=== PATIENT | female | born 1940 | race Caucasian/White ===

== ENCOUNTER 2023-09-17 13:35 | Outpatient (OUT) | payer OTHER, SELFPAY ==
--- NOTE | 2023-09-17 13:41 | MM_ITS ---
Patient Name: JAGUAR MONAE MR#: [id number] : 1940 Exam Date: 09/17/2023 Ordering Doctor: DR Ruy Mullins . RADIOLOGY REPORT PROCEDURE: MM TOMOSYNTHESIS SCREENING BI COMPARISON: MG MAMM SCREEN 3D SHANTELL CAD, 08/03/2022. MG MAMM SCREEN 3D SHANTELL CAD, 08/01/2021. MG MAMM SCREEN SHANTELL W CAD, 03/04/2020. MG MAMM SHANTELL SCRN W CAD DIG, 12/15/2013. INDICATIONS: Screening Calculator Name NCI Breast Cancer Risk Assessment Tool 5 Year Breast Cancer Risk 3.10% Lifetime Breast Cancer Risk 4.40% Personal Breast Cancer No Personal Ovarian Cancer No Treatments None Family Cancers Mother with skin cancer cancer at age 60; Mother with breast cancer at age 60; Aunt-paternal with ovarian cancer at age 60; Grandmother-maternal with cervical cancer at age 87. LOCATION: [facility] BREAST COMPOSITION: Scattered areas fibroglandular density. FINDINGS: DIAGNOSTIC CATEGORY 1--NEGATIVE. RIGHT BREAST: No significant suspicious finding. No significant change has occurred. LEFT BREAST: No significant suspicious finding. No significant change has occurred. RECOMMENDATIONS: ROUTINE MAMMOGRAM AND CLINICAL EVALUATION IN 12 MONTHS. PLEASE NOTE: A NORMAL MAMMOGRAM DOES NOT EXCLUDE THE POSSIBILITY OF BREAST CANCER. A CLINICALLY SUSPICIOUS PALPABLE LUMP SHOULD BE BIOPSIED. Dictated by: Emil Mora M.D. on 09/19/2023 at 12:25 Approved by: Emil Mora M.D. on 09/19/2023 at 12:27
== END 2023-09-17 13:36 | disposition home or self-care (01) ==
LOC: MAMMO 13:35
PROVIDERS: PCP Obstetrics & Gynecology; Visit Provider Obstetrics & Gynecology
DX: Z12.4 Encounter for screening for malignant neoplasm of cervix (principal); Z12.31 Encounter for screening mammogram for malignant neoplasm of breast; Z80.3 Family history of malignant neoplasm of breast; Z80.41 Family history of malignant neoplasm of ovary; Z80.8 Family history of malignant neoplasm of other organs or systems
CPT/HCPCS: 77063; 77067; G0145

== ENCOUNTER 2023-09-17 20:37 | Outpatient (REF) | payer OTHER, SELFPAY ==
[2023-09-20 14:09] LABS: Age Gdln ACOG Testing Note (.); Pap IG (Image Guided) Note (.)
== END 2023-09-17 20:38 | disposition home or self-care (01) ==
LOC: LAB 20:37
PROVIDERS: PCP Obstetrics & Gynecology; Visit Provider Physician Assistant
DX: Z12.4 Encounter for screening for malignant neoplasm of cervix (principal)
CPT/HCPCS: G0145